=== PATIENT | female | born 1960 | race Caucasian/White ===

== ENCOUNTER 2021-04-21 09:00 | Outpatient (CLI) | payer OTHER | END 2021-04-21 09:30 | disposition home or self-care (01) | LOC: PPH VACUNA 09:00 | PROVIDERS: ATTEND Emergency Medicine Pediatric Emergency Medicine | DX: Z23 Encounter for immunization (principal) ==

== ENCOUNTER 2021-10-12 08:00 | Outpatient (CLI) | payer OTHER | END 2021-10-12 08:30 | disposition home or self-care (01) | LOC: PPH VACUNA 08:00 | PROVIDERS: ATTEND Emergency Medicine Pediatric Emergency Medicine | DX: Z23 Encounter for immunization (principal) ==

== ENCOUNTER 2022-04-20 09:22 | Outpatient (CLI) | payer OTHER | END 2022-04-20 09:32 | disposition home or self-care (01) | LOC: PPH VACUNA 09:22 | PROVIDERS: ATTEND Emergency Medicine Pediatric Emergency Medicine | DX: Z23 Encounter for immunization (principal) ==

== ENCOUNTER 2022-06-04 08:08 | Outpatient (CLI) | payer OTHER | END 2022-06-04 08:29 | disposition home or self-care (01) | LOC: MAMO-SONO 08:08 → NUCLEAR 10:00 | DX: N64.4 Mastodynia (principal); N60.19 Diffuse cystic mastopathy of unspecified breast; Z12.39 Encounter for other screening for malignant neoplasm of breast ==

== ENCOUNTER 2022-06-04 09:35 | Outpatient (CLI) | payer OTHER | END 2022-06-04 09:47 | disposition home or self-care (01) | LOC: NUCLEAR 09:35 | PROVIDERS: ATTEND Internal Medicine | DX: I34.0 Nonrheumatic mitral (valve) insufficiency (principal); I65.21 Occlusion and stenosis of right carotid artery ==

== ENCOUNTER 2024-10-19 11:50 | Outpatient (CLI) | payer OTHER | END 2024-10-19 11:57 | disposition home or self-care (01) | LOC: RAD 11:50 | PROVIDERS: ATTEND Physical Medicine & Rehabilitation | DX: S20.211A Contusion of right front wall of thorax, initial encounter (principal) ==